=== PATIENT | female | born 1995 | race Caucasian/White ===

== ENCOUNTER 2018-04-05 13:39 | Outpatient (CLI) | payer BC ==
[2018-04-05 14:57] LABS: Free T4 (Free Thyroxine) 0.95 ng/dL (0.70-1.48); Thyroid Stimulating Hormone 1.8925 uIU/mL (0.35-4.94)
--- NOTE | 2018-04-05 16:17 | ULT ---
THYROID ULTRASOUND: 04/05/18 COMPARISON: None. HISTORY: 22-year-old female with hypercalcemia. TECHNIQUE: Multiplanar webb scale sonographic imaging of the thyroid gland obtained. FINDINGS: Thyroid isthmus measures 3 mm in AP dimension. The right lobe of the thyroid gland measures 1.3 x 4.5 x 1.3 cm. There is a calcification within the right lobe of the thyroid gland measuring in the 3 mm range and there is a tiny mildly complex hypoechoic nodule in the mid right lobe measuring 3 x 3 mm. Left lobe measures 1.3 x 3.7 x 1.2 cm. There is a 2-3 mm mildly complex hypoechoic nodule within the mid aspect of the left lobe laterally. No dominant thyroid nodule noted on either side. IMPRESSION: Subcentimeter thyroid nodules of doubtful clinical significance. POS: [facility]
[2018-04-05 16:55] LABS: Vitamin D, 25 Hydroxy 47.4 ng/ml (> 30.0)
== END 2018-04-05 13:40 | disposition home or self-care (01) ==
LOC: SCSULT 13:39
PROVIDERS: ATTEND Family Medicine
DX: E04.2 Nontoxic multinodular goiter (principal); E83.52 Hypercalcemia; E03.9 Hypothyroidism, unspecified; R53.83 Other fatigue; Z79.899 Other long term (current) drug therapy
CPT/HCPCS: 36415; 76536; 82306; 82310; 83970; 84439; 84443

== ENCOUNTER 2020-04-26 08:13 | Outpatient (CLI) | payer BC, OTHER ==
[2020-04-26 16:31] LABS: BHCG - Serum Negative (NEGATIVE); Pregs Control Background? CLEAR/WHITE (CLR/WHITE); Pregs Control Bar Appear? YES (CONTROL BAR)
[2020-04-26 16:35] LABS: Anion Gap 16 mmol/L (10-20); BUN (Urea Nitrogen) 10 mg/dL (7.0-18.7); Calc. Creatinine Clearance 0 mL/min (70-130); Calcium 10.3 mg/dL (7.8-10.44); Carbon Dioxide 22 mmol/L (22-29); Chloride 105 mmol/L (98-107); Estimated GFR-MDRD 75; Glucose 85 mg/dL (70-105); Potassium 4.4 mmol/L (3.5-5.1); Sodium 139 mmol/L (136-145)
[2020-04-27 11:33] LABS: SARS-CoV-2 MS2 Positive; SARS-CoV-2 N Gene Negative; SARS-CoV-2 S Gene Negative; SARS-CoV-2 orf1ab Negative
== END 2020-04-26 08:14 | disposition home or self-care (01) ==
LOC: LABBT 08:13
PROVIDERS: ATTEND Surgery
DX: Z01.812 Encounter for preprocedural laboratory examination (principal); Z11.59 Encounter for screening for other viral diseases; K64.9 Unspecified hemorrhoids
CPT/HCPCS: 80048; 84703; 87635; U0003

== ENCOUNTER 2020-05-01 13:04 | Day surgery (SDC) | payer BC ==
[2020-04-25 10:39] VITALS: BMI 22.3
[~2020-05-01 13:04] MED LIST: Dexamethasone 20 MG/5 ML VIAL ONE; Ketorolac Tromethamine 30 MG/ML VIAL ONE; Lidocaine 1% PF 5 ML VIAL ONE; Ondansetron PF 4 MG/2 ML Vial ONE; PROPOFOL 200 MG/20 ML VIAL ONE
[2020-05-01] MEDS ORDERED: Midazolam HCl 2 mg/2 ml Vial ONE ×3 (13:27→15:50)
[2020-05-01] MEDS ORDERED: Fentanyl 100 MCG/2 ML VIAL ONE ×2 (13:27→15:38)
[2020-05-01] MEDS ORDERED: Lidocaine 2% w/Epinephrine 1:200K 20 ML VIAL ONE (15:42)
[2020-05-01] MEDS ORDERED: Bupivacaine 0.25% HCL 30 ML VIAL ONE (15:42)
[2020-05-01] MEDS ORDERED: Lidocaine 1% w/Epinephrine 1:100K 20 ML VIAL ONE (15:42)
[2020-05-01] MEDS ORDERED: Lidocaine 2% Jelly 5 ML TUBE ONE (15:43)
--- NOTE | 2020-05-01 22:41 | OP ---
DATE OF PROCEDURE: 05/01/2020 PREOPERATIVE DIAGNOSIS: External hemorrhoids. POSTOPERATIVE DIAGNOSIS: External hemorrhoids. PROCEDURE: External hemorrhoidectomy. ANESTHESIA: General. ESTIMATED BLOOD LOSS: Minimal. COMPLICATIONS: None. SPECIMEN: External hemorrhoid. DESCRIPTION OF PROCEDURE: Patient was taken to the operating room and laid spine on the operating table after. After general anesthetic is obtained, the patient is placed in lithotomy position. Her perineum and anal areas prepped and draped in a sterile fashion. There is a left posterolateral hemorrhoid, mostly external. The mucosa is incised sharply over it. Ligature was used to dissect on top of the sphincter muscle to remove the hemorrhoid, sent to path for final diagnosis. The resultant mucosal defect is closed using running Vicryl suture. This resulted in no injury to the sphincter muscle and no stenosis of the anal canal. The patient was sent to Recovery in stable condition. All instrument counts, needle counts, and lap counts are correct. Job ID: [id number]
== END 2020-05-01 18:06 | disposition home or self-care (01) ==
LOC: SDC 13:04
PROVIDERS: ATTEND Surgery
PROC: 06BY0ZC Excision of Hemorrhoidal Plexus, Open Approach (ICD-10-PCS; principal; 2020-05-01)
DX: K64.4 Residual hemorrhoidal skin tags (principal); I10 Essential (primary) hypertension; Z79.899 Other long term (current) drug therapy
CPT/HCPCS: 88304; J1100; J1885; J2001; J2250; J2405; J2704; J3010; S0020